=== PATIENT | female | born 1980 | race Caucasian/White ===

== ENCOUNTER 2016-08-11 01:49 | Emergency (ER) | payer MEDICAID ==
[~2016-08-11] VITALS: Ht 182.9 cm; Wt 73.2 kg
[~2016-08-11 01:49] MED LIST: OXYC-229 PO
[2016-08-11 01:50] VITALS: BP 119/77
[2016-08-11] MEDS ORDERED: TRAZ50TA18 PO (02:08)
== END 2016-08-11 02:35 | disposition home or self-care (01) ==
LOC: ED 02:31
DX: R09.89 Other specified symptoms and signs involving the circulatory and respiratory systems (principal); M54.30 Sciatica, unspecified side
CPT/HCPCS: 99281

== ENCOUNTER 2019-12-08 14:06 | Emergency (ER) | payer MEDICAID ==
[~2019-12-08] VITALS: Ht 182.9 cm; Wt 72.2 kg
[~2019-12-08 14:06] MED LIST changes: -OXYC-229 PO; +OXYC-307 PO; +TRAZ50TA66 PO
[2019-12-08 14:16] VITALS: BP 133/99
[2019-12-08] MEDS ORDERED: LIDOCAINE-MPF 1%, 5ML INFIL ONE (14:30)
[2019-12-08] MEDS ORDERED: LIDOCAINE-MPF 1%, 5ML ONE ×2 (14:41→14:44)
--- NOTE | 2019-12-08 14:47 | NUR ---
BREAK RN- ER PA AT BEDSIDE FOR [facility].
== END 2019-12-08 16:00 | disposition home or self-care (01) ==
LOC: ED 14:56
DX: S61.411A Laceration without foreign body of right hand, initial encounter (principal); F17.200 Nicotine dependence, unspecified, uncomplicated; X58.XXXA Exposure to other specified factors, initial encounter; Y93.89 Activity, other specified; Y92.009 Unspecified place in unspecified non-institutional (private) residence as the place of occurrence of the external cause; Y99.8 Other external cause status
CPT/HCPCS: 12002; 99283

== ENCOUNTER 2020-04-01 10:48 | Emergency (ER) | payer MEDICAID ==
[~2020-04-01] VITALS: Ht 182.9 cm; Wt 70.6 kg
[2020-04-01] MEDS ORDERED: HYDROcodone/APAP 5/325 TABLET ONE (11:59)
[2020-04-01] MEDS ORDERED: ONDANSETRON ODT 4 MG ONE (11:59)
[2020-04-01] MEDS ORDERED: DIPHENHYDRAMINE 25 MG CAPSULE ONE (11:59)
[2020-04-01] MEDS ORDERED: KETOROLAC 30 MG/1 ML IM ONE (12:00)
[2020-04-01] MEDS ORDERED: ONDANSETRON ODT 4 MG PO ONE (12:00)
[2020-04-01] MEDS ORDERED: DIPHENHYDRAMINE 25 MG CAPSULE PO ONE (12:00)
[2020-04-01] MEDS ORDERED: HYDROcodone/APAP 5/325 TABLET PO ONE (12:00)
[2020-04-01 12:24] LABS: BASOPHILS % (AUTO) 1 % (0-1); EOSINOPHILS % (AUTO) 4 % (1-7); LYMPHOCYTES % (AUTO) 21 % (22-44); MEAN CORPUSCULAR HGB CONC 33.8 g/dL (32.4-35.8); MEAN PLATELET VOLUME 9.4 fL (7.4-10.4); MONOCYTES % (AUTO) 9 % (2-9); NEUTROPHILS % (AUTO) 66 % (42-75); PLATELET COUNT 214 x10^3/uL (130-400); RED BLOOD COUNT 4.51 x10^6/uL (3.82-5.3); RED CELL DISTRIBUTION WIDTH 14.3 % (9.6-15.2)
[2020-04-01 12:39] LABS: ALBUMIN 3.9 g/dL (3.4-5.0); ANION GAP 2 mmol/L (5-15); CHLORIDE 111 mmol/L (98-107); CREATININE 0.84 mg/dL (0.55-1.02)
[2020-04-01 12:48] LABS: MD NO
--- NOTE | 2020-04-01 13:26 | NUR ---
TASK RN: PT TO CT AT THIS TIME
[2020-04-01 13:37] LABS: MICROSCOPIC NOT IND
[2020-04-01] MEDS ORDERED: OMNIPAQUE 350 MG/ML, 100ML BOTTLE ONE (13:53)
[2020-04-01 13:57] VITALS: BP 115/79
[2020-04-01] MEDS ORDERED: SODIUM CHLORIDE FLUSH 10ML SYR IVF ONE (14:00)
--- NOTE | 2020-04-01 14:20 | NUR ---
PT RESTING. VSS
--- NOTE | 2020-04-01 14:38 | NUR ---
Patient/Caregiver given discharge instructions and they have confirmed that they understand the instructions. Patient ambulatory with steady gait.
== END 2020-04-01 15:09 | disposition home or self-care (01) ==
LOC: ED 11:32
DX: J06.9 Acute upper respiratory infection, unspecified (principal); Z20.822 Contact with and (suspected) exposure to COVID-19; R10.9 Unspecified abdominal pain; R51.9 Headache, unspecified; R21 Rash and other nonspecific skin eruption; R42 Dizziness and giddiness; R50.9 Fever, unspecified
CPT/HCPCS: 70450; 70496; 71045; 80048; 81003; 82040; 84703; 85025; 87635; 93005; 99285; Q0162; Q0163; Q9967

== ENCOUNTER 2020-06-13 23:04 | Emergency (ER) | payer MEDICAID ==
[~2020-06-13] VITALS: Ht 182.9 cm; Wt 75.1 kg
[~2020-06-13 23:04] MED LIST changes: -OXYC-307 PO; +OXYC-380 PO
[2020-06-13 23:08] VITALS: BP 131/79
--- NOTE | 2020-06-13 23:18 | NUR ---
PATIENT DEMANDING TO LEAVE WHEN RN AND MD AT BEDSIDE. PATIENT AGREED TO HAVE VITALS TAKEN BUT REPEATS "CALL MY NOW SO HE CAN COME PICK ME UP. IM NOT STAYING HERE. IM NOT BEING DETAINED SO I CAN LEAVE". PATIENT HAS NO EMERGENT COMPLAINTS AT THIS TIME. DENIES SI/HI. STATES "I WAS TAKEN HERE AGAINST MY WILL". PATIENT STATES TO DR. JAVIER "THEY TOOK ME HERE AGAINST MY WILL BECAUSE IM INTOXICATED". CALL PA IN REACH. SAFETY MAINTAINED. Addendum: 06/13/20 at 2333 by ADOUGHTY PATIENT GAVE VERBAL CONSENT TO TELL REASON FOR NEEDING A RIDE FROM [facility].
--- NOTE | 2020-06-13 23:20 | NUR ---
CALLED AND LEFT VM. NUMBER WENT STRAIGHT TO [employer]
--- NOTE | 2020-06-13 23:27 | NUR ---
CALLED BACK, NOEL DUMAS, AND RN SPOKE WITH HIM. MINUTES AGO 2 RN'S TO ROOM TO DISCHARGE PATIENT AND PATIENT NOT IN ROOM OR IN NEARBY BATHROOM. WAS NOT SEEN IN [facility]. PATIENT WAS BEING DISCHARGED BUT HAS ELOPED. WAS NOT ABLE TO REVIEW DISCHARGE PAPERWORK WITH PATIENT. UNABLE TO PROVIDE HER WITH A RIDE HOME WELL DUE TO HER ELOPING. ALL PERSONAL BELONGINGS WITH PATIENT ON DEPARTURE DUE TO NO PERSONAL BELONGINGS LEFT IN ROOM. PATIENT ASSUMED TO BE AMBULATORY DUE TO ELOPING. SECURITY NOTIFIED. NO IV PLACED DURING THIS ER VISIT
== END 2020-06-13 23:36 | disposition left against medical advice (07) ==
LOC: ED 23:30
DX: F10.20 Alcohol dependence, uncomplicated (principal); R56.9 Unspecified convulsions; F17.200 Nicotine dependence, unspecified, uncomplicated; Y90.0 Blood alcohol level of less than 20 mg/100 ml
CPT/HCPCS: 99283